=== PATIENT | female | born 1950 | race Caucasian/White ===

== ENCOUNTER 2017-08-24 06:00 | Observation (INO) | payer MEDICARE, OTHER ==
[2017-08-24] MEDS ORDERED: MORPHINE SULFATE 2 MG/ML SYRINGE IV STA (06:18)
[2017-08-24] MEDS ORDERED: ONDANSETRON 4 MG/2 ML VIAL IVP STA (06:18)
--- NOTE | 2017-08-24 06:20 | ED ---
Chest Pain HPI - General Chief Complaint: Chest Pain Stated Complaint: Chest Pain, Nausea Time Seen by Provider: 08/24/17 06:18 Source: patient Mode of arrival: ambulatory Limitations: no limitations - History of Present Illness Initial Comments: Patient complains of chest pain. Patient states the pain is in the substernal area, without radiation. Patient also has nausea. She denies any lightheadedness or dizziness. She has no vomiting. She has no pain or swelling in the legs. She has no palpitations. She was not doing anything when the pain began. The pain does not radiate anywhere. She denies any sick contacts. She has had no injuries. She denies any neck pain or stiffness. She has had no syncope or presyncope. - Related Data Home Medications Medication Instructions Recorded Confirmed HYDROcodone/APAP 10-325MG [[place] 1 tab PO Q6H PRN 11/07/15 11/08/15 10-325] Ibuprofen [Motrin] 600 mg PO Q8HR PRN 11/07/15 11/08/15 Losartan [Cozaar] 25 mg PO DAILY 11/07/15 11/08/15 Simvastatin [Zocor] 10 mg PO HS 11/07/15 11/07/15 amLODIPine [Norvasc] 10 mg PO DAILY 11/07/15 11/08/15 Multivitamins, Thera [Theragran] 1 tab PO DAILY 11/08/15 11/08/15 Previous Rx's Medication Instructions Recorded HYDROcodone/APAP 10-325MG [[place] 1 tab PO Q6H PRN #90 tab 11/11/15 10-325] Allergies Allergy/AdvReac Type Severity Reaction Status Date / Time No Known Allergies Allergy Verified 08/24/17 06:05 Review of Systems ROS Statement: Those systems with pertinent positive or pertinent negative responses have been documented in the HPI. ROS Other: All systems not noted in ROS Statement are negative. EKG Findings - EKG Comments: EKG Findings:: Twelve-lead EKG is obtained, interpreted by me showing ventricular rate 73 bpm, normal MN interval and QRS complexes, no ST elevation or depression, interpreted by me as normal sinus rhythm. 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 History of Any Multi-Drug Resistant Organisms: None Reported Past Surgical History: Appendectomy, Hysterectomy Additional Past Surgical History / Comment(s): parathyroid tumor removal, ovarian cyst removal Past Anesthesia/Blood Transfusion Reactions: No Reported Reaction Past Psychological History: No Psychological Hx Reported Smoking Status: Former smoker Past Alcohol Use History: Rare Past Drug Use History: None Reported - Past Family History Mother Family Medical History: No Reported History (Mother is alive she is 92-year-old has no major medical problems) Father Family Medical History: Myocardial Infarction ([place]) (Father at age of 72 from [place]) Brother(s) Family Medical History: No Reported History (Patient has 3 brothers no major medical problems) Sister(s) Family Medical History: No Reported History (Patient has one sister no major medical problems) Son(s) Family Medical History: No Reported History (Patient has 2 sons no major medical problems) Daughter(s) Family Medical History: No Reported History (Patient has one daughter no major medical problems) General Exam Limitations: no limitations General appearance: alert, in no apparent distress Head exam: Present: atraumatic, normocephalic, normal inspection Eye exam: Present: normal appearance, PERRL, EOMI. Absent: scleral icterus, conjunctival injection, periorbital swelling ENT exam: Present: normal exam, mucous membranes moist Neck exam: Present: normal inspection. Absent: tenderness, meningismus, lymphadenopathy Respiratory exam: Present: normal lung sounds bilaterally. Absent: respiratory distress, wheezes, rales, rhonchi, stridor Cardiovascular Exam: Present: regular rate, normal rhythm, normal heart sounds. Absent: systolic murmur, diastolic murmur, rubs, gallop, clicks GI/Abdominal exam: Present: soft, normal bowel sounds. Absent: distended, tenderness, guarding, rebound, rigid Extremities exam: Present: normal inspection, full ROM, normal capillary refill. Absent: tenderness, pedal edema, joint swelling, calf tenderness Back exam: Present: normal inspection Neurological exam: Present: alert, oriented X3, CN II-XII intact Psychiatric exam: Present: normal affect, normal mood Skin exam: Present: warm, dry, intact, normal color. Absent: rash Course Vital Signs 11/03/17 11/03/17 06:03 06:46 Temperature 97.9 F Pulse Rate 81 75 Respiratory 18 18 Rate Blood Pressure 136/98 O2 Sat by Pulse 99 98 Oximetry Chest Pain MDM - MDM Patient presents to the emergency department with chest pain. EKG is normal in appearance. Patient will be admitted to the hospital. I will place a consultation to cardiology. Disposition Clinical Impression: Chest pain Disposition: ADMITTED IP TO THIS HOSP Condition: Fair Time of Disposition: 07:00
[2017-08-24] MEDS ORDERED: MORPHINE SULFATE 10 MG/ML SYRINGE IV PRN (06:27)
[2017-08-24] MEDS ORDERED: ONDANSETRON 4 MG/2 ML VIAL IVP PRN (06:27)
[2017-08-24] MEDS ORDERED: NALOXONE 0.4 MG/ML 1 ML VIAL IV PRN (06:27)
[2017-08-24 06:30] LABS: Basophils # (A) 0.1 k/uL (0-0.2); Basophils % (A) 1 %; CH 28.7; CHCM 33.2; Eosinophils # (A) 0.3 k/uL (0-0.7); Eosinophils % (A) 3 %; HCT 44.2 % (34.0-46.0); HDW 2.79; HGB 14.6 gm/dL (11.4-16.0); Luc # (Auto) 0.19; Luc % (Auto) 2; Lymphocytes # (A) 2.7 k/uL (1.0-4.8); Lymphocytes % (A) 25 %; MCH 28.8 pg (25.0-35.0); MCHC 33.1 g/dL (31.0-37.0); Mean Platelet Volume 9.2; Monocytes # (A) 0.5 k/uL (0-1.0); Monocytes % (A) 4 %; Neutrophils % (A) 65 %; RBC 5.08 m/uL (3.80-5.40); RDW 13.2 % (11.5-15.5); WBC 10.7 k/uL (3.8-10.6); WBC (Perox) 10.22
[2017-08-24 06:40] LABS: ALT 25 U/L (9-52); AST 23 U/L (14-36); Alkaline Phosphatase 82 U/L (38-126); Anion Gap 11 mmol/L; Blood Urea Nitrogen 18 mg/dL (7-17); Calcium 10.1 mg/dL (8.4-10.2); Carbon Dioxide 24 mmol/L (22-30); Chloride 107 mmol/L (98-107); Glucose 135 mg/dL (74-99); Magnesium 1.7 mg/dL (1.6-2.3); Non-African American GFR(MDRD) >60 (>60 ml/min/1.73 sqM); Potassium 3.9 mmol/L (3.5-5.1); Sodium 142 mmol/L (137-145); Total Bilirubin 0.4 mg/dL (0.2-1.3); Total Protein 7.6 g/dL (6.3-8.2)
[2017-08-24 06:42] LABS: Partial Thromboplastin Time 22.2 sec (22.0-30.0); Prothrombin Time 9.9 sec (9.0-12.0)
--- NOTE | 2017-08-24 06:48 | XR ---
EXAMINATION TYPE: XR chest 2V DATE OF EXAM: 08/24/2017 HISTORY: Chest Pain. REFERENCE: Previous study dated 11/09/2015. FINDINGS: There is some scarring at the left lung base. Lungs otherwise clear. Pleural space are reggie r. The heart is not enlarged.. IMPRESSION: MINIMAL SCARRING, LEFT LUNG BASE.
[2017-08-24 09:01] LABS: Cholesterol 261 mg/dL (<200); HDL Cholesterol 62 mg/dL (40-60)
--- NOTE | 2017-08-24 09:40 | US ---
EXAMINATION TYPE: US gallbladder DATE OF EXAM: 08/24/2017 COMPARISON: NONE CLINICAL HISTORY: RUQ pain. EXAM MEASUREMENTS: Liver Length: 12.5 cm Gallbladder Wall: 0.4 cm CBD: 0.5 cm Right Kidney: 10.0 x 4.6 x 4.3 cm Large body habitus, excessive overlying bowel gas, limited and technically difficult study Pancreas: Obscured by bowel gas Liver: limited visualization Gallbladder: cholelithiasis, wall thickening Evidence for sonographic Diego's sign: no, but patient having RUQ pain CBD: wnl Right Kidney: No hydronephrosis or masses seen The pancreas is obscured. The liver is normal in size without biliary dilatation. There are gallstones within the gallbladder. The gallbladder wall is thickened measuring 4 mm. There was no sonographic Diego's sign. The distal common hepatic duct measures 5 mm. The right kidney is unremarkable. IMPRESSION: 1. CHOLELITHIASIS. 2. GALLBLADDER WALL THICKENING.
[2017-08-24] MEDS: FAMOTIDINE 20 MG TAB PO SCH ×2 (09:49→20:49)
[2017-08-24] MEDS: amLODIPine 10 MG TAB PO SCH (09:49)
[2017-08-24] MEDS: LOSARTAN 25 MG TAB PO SCH (09:49)
--- NOTE | 2017-08-24 11:32 | ECHOF ---
Referral Reason:chest pain MEASUREMENTS -------- HEIGHT: 167.6 cm WEIGHT: 90.7 kg BP: 166/79 RVIDd: 4.2 cm (< 3.3) IVSd: 1.0 cm (0.6 - 1.1) LVIDd: 5.3 cm (3.9 - 5.3) LVPWd: 0.9 cm (0.6 - 1.1) IVSs: 1.7 cm LVIDs: 2.0 cm LVPWs: 2.0 cm Ao Diam: 3.0 cm (2.0 - 3.7) AV Cusp: 1.9 cm (1.5 - 2.6) LA Diam: 3.8 cm (2.7 - 3.8) MV EXCURSION: 11.800 mm (> 18.000) MV EF SLOPE: 73 mm/s (70 - 150) EPSS: 0.5 cm MV E Mitesh: 0.59 m/s MV DecT: 177 ms MV A Mitesh: 0.80 m/s MV E/A Ratio: 0.73 RAP: 5.00 mmHg RVSP: 32.43 mmHg FINDINGS -------- Sinus rhythm. This was a technically good study. The left ventricular size is normal. There is mild concentric left ventricular hypertrophy. Overa ll left ventricular systolic function is normal with, an EF between 55 - 60 %. The right ventricle is moderately enlarged. The left atrium is normal in size. The right atrium is normal in size. There is mild aortic valve sclerosis. The mitral valve is normal. There is trace mitral regurgitation. Trace tricuspid regurgitation present. The right ventricular systolic pressure, as measured by Dopp ler, is 32.43mmHg. There is no pulmonic regurgitation present. The aortic root size is normal. There is no pericardial effusion. CONCLUSIONS -------- 1. Sinus rhythm. 2. This was a technically good study. 3. There is mild concentric left ventricular hypertrophy. 4. Overall left ventricular systolic function is normal with, an EF between 55 - 60 %. 5. The right ventricle is moderately enlarged. 6. The left atrium is normal in size. 7. There is mild aortic valve sclerosis. 8. There is trace mitral regurgitation. 9. Trace tricuspid regurgitation present. 10. The right ventricular systolic pressure, as measured by Doppler, is 32.43mmHg. 11. There is no pulmonic regurgitation present. 12. The aortic root size is normal. 13. There is no pericardial effusion. FLAT BREAKDOWN PROCESSOR: Corin Medel RDCS
--- NOTE | 2017-08-24 14:32 | P.CRDCN ---
History of Present Illness Consult date: 08/24/17 Requesting physician: Barrington Adam Reason for Consult (text): chest pain Chief complaint: chest and RUQ pain History of present illness: This is a pleasant 66-year-old female patient with history of hypertension, hyperlipidemia, and GERD. She presented to the emergency department after waking around 2 AM with complaints of sharp midsternal/ epigastric discomfort that radiated posteriorly just below her shoulder blades as well as to her right upper quadrant. She initially felt that this was related to her gastric reflux however began to experience some nausea with vomiting. EKG upon presentation showed sinus rhythm without any acute ST-T wave abnormalities. Chest x-ray showed minimal scarring at the left lung base. Laboratory values show BUN of 15, creatinine 0.69, troponin less than 0.012 and a BNP of 37. Upon examination this morning, patient is resting comfortably in bed. She denies further complaints as described above. She does however have some mild tenderness to palpation in the right upper quadrant of her abdomen. No further nausea or vomiting. 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 History of Any Multi-Drug Resistant Organisms: None Reported Past Surgical History: Appendectomy, Hysterectomy Additional Past Surgical History / Comment(s): parathyroid tumor removal, ovarian cyst removal Past Anesthesia/Blood Transfusion Reactions: No Reported Reaction Past Psychological History: No Psychological Hx Reported Smoking Status: Former smoker Past Alcohol Use History: Rare Past Drug Use History: None Reported - Past Family History Mother Family Medical History: No Reported History Father Family Medical History: Myocardial Infarction ([place]) Brother(s) Family Medical History: No Reported History Sister(s) Family Medical History: No Reported History Son(s) Family Medical History: No Reported History Daughter(s) Family Medical History: No Reported History Medications and Allergies Home Medications Medication Instructions Recorded Confirmed Type Losartan [Cozaar] 25 mg PO DAILY 11/07/15 08/24/17 History amLODIPine [Norvasc] 10 mg PO DAILY 11/07/15 08/24/17 History Multivitamins, Thera [Theragran] 1 tab PO DAILY 11/08/15 08/24/17 History Allergies Allergy/AdvReac Type Severity Reaction Status Date / Time No Known Allergies Allergy Verified 08/24/17 06:05 Physical Exam Vitals: Vital Signs Temp Pulse Pulse Resp BP BP Pulse Ox 08/24/17 07:22 96.2 F L 79 18 166/79 94 L 08/24/17 07:11 98 F 75 16 100 08/24/17 06:46 75 18 98 08/24/17 06:03 97.9 F 81 18 136/98 99 Intake and Output 08/23/17 08/24/17 08/24/17 22:59 06:59 14:59 Other: Weight 90.718 kg PHYSICAL EXAMINATION: HEENT: Head is atraumatic, normocephalic. Pupils equal, round. Neck is supple. There is no elevated jugular venous pressure. HEART EXAMINATION: Heart sounds regular, S1 and S2 normal. No murmur or gallop heard. CHEST EXAMINATION: Lungs are clear to auscultation and precussion. No chest wall tenderness is noted on palpation or with deep breathing. ABDOMEN: Soft, tenderness to RUQ. Bowel sounds are heard. No organomegaly noted. EXTREMITIES: 2+ peripheral pulses with no evidence of peripheral edema and no calf tenderness noted. NEUROLOGIC patient is awake, alert and oriented x3. . Results 08/24/17 06:15 08/24/17 06:15 Cardiac Enzymes 08/24/17 08/24/17 Range/Units 06:15 06:15 AST 23 (14-36) U/L Troponin I <0.012 (0.000-0.034) ng/mL Coagulation 08/24/17 Range/Units 06:15 PT 9.9 (9.0-12.0) sec APTT 22.2 (22.0-30.0) sec CBC 08/24/17 Range/Units 06:15 WBC 10.7 H (3.8-10.6) k/uL RBC 5.08 (3.80-5.40) m/uL Hgb 14.6 (11.4-16.0) gm/dL Hct 44.2 (34.0-46.0) % Plt Count 304 (150-450) k/uL Comprehensive Metabolic Panel 08/24/17 Range/Units 06:15 Sodium 142 (137-145) mmol/L Potassium 3.9 (3.5-5.1) mmol/L Chloride 107 (98-107) mmol/L Carbon Dioxide 24 (22-30) mmol/L BUN 18 H (7-17) mg/dL Creatinine 0.69 (0.52-1.04) mg/dL Glucose 135 H (74-99) mg/dL Calcium 10.1 (8.4-10.2) mg/dL AST 23 (14-36) U/L ALT 25 (9-52) U/L Alkaline Phosphatase 82 (38-126) U/L Total Protein 7.6 (6.3-8.2) g/dL Albumin 4.4 (3.5-5.0) g/dL Current Medications Generic Name Dose Route Start Last Admin Trade Name Freq PRN Reason Stop Dose Admin Amlodipine Besylate 10 mg 08/24/17 09:00 Norvasc PO DAILY [facility] Atorvastatin Calcium 10 mg 08/24/17 21:00 Lipitor PO HS [facility] Famotidine 20 mg 08/24/17 09:00 Pepcid PO BID [facility] Losartan Potassium 25 mg 08/24/17 09:00 Cozaar PO DAILY [facility] Morphine Sulfate 4 mg 08/24/17 06:27 Morphine Sulfate (Inj) IV Q4HR PRN Severe Pain Naloxone HCl 0.2 mg 08/24/17 06:27 Narcan IV Q2M PRN Opioid Reversal Ondansetron HCl 4 mg 08/24/17 06:27 Zofran IVP Q8HR PRN Nausea And Vomiting Intake and Output 08/23/17 08/24/17 08/24/17 22:59 06:59 14:59 Other: Weight 90.718 kg 08/24/17 06:15 08/24/17 06:15 Assessment and Plan Assessment: #1 atypical chest pain, suggestive of GI etiology #2 hypertension #3 hyperlipidemia Plan: From cardiology's perspective, will obtain a 2-D echo with Doppler to assess LV function and rule out LV wall motion abnormalities. Will also obtain ultrasound of gallbladder to rule out gallbladder disease. DENTAL NURSE note has been reviewed, I agree with a documented findings and plan of care. Patient was seen and examined.
--- NOTE | 2017-08-24 15:23 | P.HPIM ---
History of Present Illness This is a pleasant 66-year-old female patient with history of hypertension, hyperlipidemia, and GERD. She presented to the emergency department after waking around 2 AM with complaints of sharp midsternal/ epigastric discomfort that radiated posteriorly just below her shoulder blades as well as to her right upper quadrant. She initially felt that this was related to her gastric reflux however began to experience some nausea with vomiting. EKG upon presentation showed sinus rhythm without any acute ST-T wave abnormalities. patient's pain symptoms are mostly related to food patient did be leave that patient may have acid reflux because of which she took medications for that with some improvement in her symptoms. Cardiac evaluated the patient. Obtain a ultrasound of the abdomen which showed cholelithiasis possibly of cholecystitis patient does have tenderness in the right upper quadrant, surgery will be consulted patient will be started on Unasyn, patient continues to have symptoms.mostly has cholelithiasis but cholecystitis cannot be ruled out patient does have some leukocytosis denied any fever. Review of Systems REVIEW OF SYSTEMS: CONSTITUTIONAL: No fever, no malaise, no fatigue. HEENT: No recent visual problems or hearing problems. Denied any sore throat. CARDIOVASCULAR: No orthopnea, PND, no palpitations, no syncope. PULMONARY: No shortness of breath, no cough, no hemoptysis. GASTROINTESTINAL: No diarrhea, no vomiting, NEUROLOGICAL: No headaches, no weakness, no numbness. HEMATOLOGICAL: Denies any bleeding or petechiae. GENITOURINARY: Denies any burning micturition, frequency, or urgency. MUSCULOSKELETAL/RHEUMATOLOGICAL: Denies any joint pain, swelling, or any muscle pain. ENDOCRINE: Denies any polyuria or polydipsia. The rest of the 14-point review of systems is negative. 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 History of Any Multi-Drug Resistant Organisms: None Reported Past Surgical History: Appendectomy, Hysterectomy Additional Past Surgical History / Comment(s): parathyroid tumor removal, ovarian cyst removal Past Anesthesia/Blood Transfusion Reactions: No Reported Reaction Past Psychological History: No Psychological Hx Reported Smoking Status: Former smoker Past Alcohol Use History: Rare Past Drug Use History: None Reported - Past Family History Mother Family Medical History: No Reported History Father Family Medical History: Myocardial Infarction ([place]) Brother(s) Family Medical History: No Reported History Sister(s) Family Medical History: No Reported History Son(s) Family Medical History: No Reported History Daughter(s) Family Medical History: No Reported History Medications and Allergies Home Medications Medication Instructions Recorded Confirmed Type Losartan [Cozaar] 25 mg PO DAILY 11/07/15 08/24/17 History amLODIPine [Norvasc] 10 mg PO DAILY 11/07/15 08/24/17 History Multivitamins, Thera [Theragran] 1 tab PO DAILY 11/08/15 08/24/17 History Allergies Allergy/AdvReac Type Severity Reaction Status Date / Time No Known Allergies Allergy Verified 08/24/17 06:05 Physical Exam Vitals: Vital Signs Temp Pulse Pulse Resp BP BP Pulse Ox 08/24/17 12:00 96.8 F L 67 16 151/76 94 L 08/24/17 07:22 96.2 F L 79 18 166/79 94 L 08/24/17 07:11 98 F 75 16 100 08/24/17 06:46 75 18 98 08/24/17 06:03 97.9 F 81 18 136/98 99 Intake and Output 08/24/17 08/24/17 08/24/17 06:59 14:59 22:59 Intake Total 200 Balance 200 Intake: Oral 200 Other: Weight 90.718 kg PHYSICAL EXAMINATION: GENERAL: The patient is alert and oriented x3, not in any acute distress. Well developed, well nourished. HEENT: Pupils are round and equally reacting to light. EOMI. No scleral icterus. No conjunctival pallor. Normocephalic, atraumatic. No pharyngeal erythema. No thyromegaly. CARDIOVASCULAR: S1 and S2 present. No murmurs, rubs, or gallops. PULMONARY: Chest is clear to auscultation, no wheezing or crackles. ABDOMEN: Soft, right upper quadrant tenderness and Diego's sign positive nondistended, normoactive bowel sounds. No palpable organomegaly. MUSCULOSKELETAL: No joint swelling or deformity. EXTREMITIES: No cyanosis, clubbing, or pedal edema. NEUROLOGICAL: Gross neurological examination did not reveal any focal deficits. SKIN: No rashes. Results CBC & Chem 7: 08/24/17 06:15 08/24/17 06:15 Labs: Abnormal Lab Results - Last 24 Hours (Table) 08/24/17 08/24/17 08/24/17 Range/Units 06:15 06:15 06:15 WBC 10.7 H (3.8-10.6) k/uL BUN 18 H (7-17) mg/dL Glucose 135 H (74-99) mg/dL Cholesterol 261 H (<200) mg/dL LDL Cholesterol, Calc 171 H (0-99) mg/dL HDL Cholesterol 62 H (40-60) mg/dL Assessment and Plan Plan: epigastric and right upper quadrant abdominal pain: Secondary to cholelithiasis or cholecystitis antibiotics as mentioned above surgical consultation. Next and #2 hypertension next and #3 hyperlipidemia next and #4 osteoarthritis next and #5 gastric esophageal reflux disease #6 rule out acute coronary syndromes next Plan continue with the antibiotics IV fluids surgical consultation patient will be transferred to [facility] to [facility]
--- NOTE | 2017-08-24 15:37 | P.GSCN ---
History of Present Illness Consult date: 08/24/17 Reason for Consult: Cholelithiasis right upper quadrant pain Requesting physician: Morgan Payne History of present illness: Thank you very much for asking us to see this patient. She is well-known to me. She is a 66-year-old white female who was awakened at about 2 AM early hours of this morning with severe retrosternal chest pain epigastric pain radiating to the back to just below her shoulder blade. It was associated with nausea and a few episodes of vomiting. After she was hospitalized the pain seemed to localize towards the right upper quadrant. Cardiac workup was negative for acute myocardial infarct or coronary artery disease of significance. She does have a history of GERD and the she was told she had a gallstone several years ago but since she was asymptomatic nothing was donefor it. No change in her bowels no constipation or diarrhea. The ultrasound showed cholelithiasis with gallstones and thickened gallbladder wall consistent with probably acute cholecystitis. Past history positive for hypertension hyperlipidemia. 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 He is now as listed including amlodipine and multivitamins. Also has a history of osteoarthritis back pain. Also renal cyst no cardiac or respiratory problem. ALLERGIES none known. Systems review otherwise negative other than above. No respiratory problems no cardiac problem. No change in her bowels no blood in his urine or stool. No vaginal discharge or bleeding. Did have colonoscopy and EGD within the last 3 years that were unremarkable. Social history and family history well-documented. On examination the patient is well-built well-nourished a little overweight in no acute distress. She states the pain is very minimal now. Duration a good vitals are good. She is a somewhat overweight the at the 91 kg 5 feet 6 inches tall. She is anicteric. Hydration and color good. Neck is supple has a neck scar. No masses or lymphadenopathy. Heart regular rhythm lungs are clear abdomen is soft with mild tenderness in the right upper quadrant with the minimal guarding. No rebound. No mass or organomegaly noted. Has well-healed lower abdominal midline scar. Extremities normal ART INSTRUCTOR intact. WBC is mildly elevated to 10,300. Hemoglobin is normal. LFTs are normal. Amylase and lipase are normal. Urinalysis is unremarkable. Ultrasound and chest x-ray are unremarkable except for cholelithiasis and a thickened gallbladder wall. Impression acute cholecystitis cholelithiasis. History of hypertension osteoarthritis. Good. Recommendation agree with current management with IV fluids restriction of diet the antibiotics. Improving quite a bit. With the recommend the that she may be discharged in the next day or so oral antibiotics. Liquid to soft low-fat diet. We'll schedule her for an elective laparoscopic cholecystectomy possible open this being explained to her including potential complication particular bleeding infection surrounding injury pain possibly of open surgery etc. she understood and agree to proceed. 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 History of Any Multi-Drug Resistant Organisms: None Reported Past Surgical History: Appendectomy, Hysterectomy Additional Past Surgical History / Comment(s): parathyroid tumor removal, ovarian cyst removal Past Anesthesia/Blood Transfusion Reactions: No Reported Reaction Past Psychological History: No Psychological Hx Reported Smoking Status: Former smoker Past Alcohol Use History: Rare Past Drug Use History: None Reported - Past Family History Mother Family Medical History: No Reported History Father Family Medical History: Myocardial Infarction ([place]) Brother(s) Family Medical History: No Reported History Sister(s) Family Medical History: No Reported History Son(s) Family Medical History: No Reported History Daughter(s) Family Medical History: No Reported History Medications and Allergies Home Medications Medication Instructions Recorded Confirmed Type Losartan [Cozaar] 25 mg PO DAILY 11/07/15 08/24/17 History amLODIPine [Norvasc] 10 mg PO DAILY 11/07/15 08/24/17 History Multivitamins, Thera [Theragran] 1 tab PO DAILY 11/08/15 08/24/17 History Allergies Allergy/AdvReac Type Severity Reaction Status Date / Time No Known Allergies Allergy Verified 08/24/17 06:05 Surgical - Exam Vital Signs Temp Pulse Resp BP Pulse Ox 97.9 F 81 18 136/98 99 08/24/17 06:03 08/24/17 06:03 08/24/17 06:03 08/24/17 06:03 08/24/17 06:03 Results - Labs 08/24/17 06:15 08/24/17 06:15 Abnormal Lab Results - Last 24 Hours (Table) 1108/24/17 08/24/17 Range/Units 06:15 06:15 06:15 WBC 10.7 H (3.8-10.6) k/uL BUN 18 H (7-17) mg/dL Glucose 135 H (74-99) mg/dL Cholesterol 261 H (<200) mg/dL LDL Cholesterol, Calc 171 H (0-99) mg/dL HDL Cholesterol 62 H (40-60) mg/dL Diabetes panel 08/24/17 08/24/17 Range/Units 06:15 06:15 Sodium 142 (137-145) mmol/L Potassium 3.9 (3.5-5.1) mmol/L Chloride 107 (98-107) mmol/L Carbon Dioxide 24 (22-30) mmol/L BUN 18 H (7-17) mg/dL Creatinine 0.69 (0.52-1.04) mg/dL Glucose 135 H (74-99) mg/dL Calcium 10.1 (8.4-10.2) mg/dL AST 23 (14-36) U/L ALT 25 (9-52) U/L Alkaline Phosphatase 82 (38-126) U/L Total Protein 7.6 (6.3-8.2) g/dL Albumin 4.4 (3.5-5.0) g/dL Triglycerides 139 (<150) mg/dL HDL Cholesterol 62 H (40-60) mg/dL Calcium panel 08/24/17 Range/Units 06:15 Calcium 10.1 (8.4-10.2) mg/dL Albumin 4.4 (3.5-5.0) g/dL Pituitary panel 08/24/17 Range/Units 06:15 Sodium 142 (137-145) mmol/L Potassium 3.9 (3.5-5.1) mmol/L Chloride 107 (98-107) mmol/L Carbon Dioxide 24 (22-30) mmol/L BUN 18 H (7-17) mg/dL Creatinine 0.69 (0.52-1.04) mg/dL Glucose 135 H (74-99) mg/dL Calcium 10.1 (8.4-10.2) mg/dL Adrenal panel 08/24/17 Range/Units 06:15 Sodium 142 (137-145) mmol/L Potassium 3.9 (3.5-5.1) mmol/L Chloride 107 (98-107) mmol/L Carbon Dioxide 24 (22-30) mmol/L BUN 18 H (7-17) mg/dL Creatinine 0.69 (0.52-1.04) mg/dL Glucose 135 H (74-99) mg/dL Calcium 10.1 (8.4-10.2) mg/dL Total Bilirubin 0.4 (0.2-1.3) mg/dL AST 23 (14-36) U/L ALT 25 (9-52) U/L Alkaline Phosphatase 82 (38-126) U/L Total Protein 7.6 (6.3-8.2) g/dL Albumin 4.4 (3.5-5.0) g/dL
[2017-08-24] MEDS: PANTOPRAZOLE 40 MG/10 ML VIAL IVP SCH (15:53)
[2017-08-24] MEDS: AMPICILLIN-SULBACTAM 3 GM in SODIUM CHLORIDE 0.9% 100 ML IVPB SCH ×2 (15:54→23:21)
[2017-08-24] MEDS: SODIUM CHLORIDE 0.9% 1,000 ML IV SCH (15:54)
[2017-08-24] MEDS ORDERED: ATORVASTATIN 10 MG TAB PO SCH (21:00)
[2017-08-25] MEDS: SODIUM CHLORIDE 0.9% 1,000 ML IV SCH ×2 (02:55→08:16)
[2017-08-25 06:13] LABS: CHCM 32.2; HCT 38.6 % (34.0-46.0); HDW 2.73; HGB 12.5 gm/dL (11.4-16.0); MCH 28.3 pg (25.0-35.0); MCHC 32.4 g/dL (31.0-37.0); MCV 87.5 fL (80.0-100.0); Mean Platelet Volume 9.7; RBC 4.42 m/uL (3.80-5.40); RDW 14.5 % (11.5-15.5); WBC 7.3 k/uL (3.8-10.6)
[2017-08-25] MEDS: AMPICILLIN-SULBACTAM 3 GM in SODIUM CHLORIDE 0.9% 100 ML IVPB SCH ×2 (06:15→11:45)
[2017-08-25 06:30] LABS: ALT 30 U/L (9-52); AST 21 U/L (14-36); Alkaline Phosphatase 60 U/L (38-126); Anion Gap 7 mmol/L; Blood Urea Nitrogen 15 mg/dL (7-17); Calcium 8.7 mg/dL (8.4-10.2); Carbon Dioxide 26 mmol/L (22-30); Chloride 109 mmol/L (98-107); Glucose 84 mg/dL (74-99); Non-African American GFR(MDRD) >60 (>60 ml/min/1.73 sqM); Potassium 4.2 mmol/L (3.5-5.1); Sodium 142 mmol/L (137-145); Total Bilirubin 0.6 mg/dL (0.2-1.3)
[2017-08-25] MEDS: LOSARTAN 25 MG TAB PO SCH (08:15)
[2017-08-25] MEDS: amLODIPine 10 MG TAB PO SCH (08:15)
[2017-08-25] MEDS: FAMOTIDINE 20 MG TAB PO SCH (08:15)
[2017-08-25] MEDS: PANTOPRAZOLE 40 MG/10 ML VIAL IVP SCH (08:16)
[2017-08-25 08:19] VITALS: RESP 18
--- NOTE | 2017-08-25 09:49 | P.PN ---
Subjective Progress Note Date: 08/25/17 Principal diagnosis: Cholecystitis Patient doing better today. Her pain is improved. She is anxious to go home. Her liver function tests are normal. White blood cell count is normal. Objective - Vital Signs Vital signs: Vital Signs Temp 97.2 F L 08/25/17 08:00 Pulse 88 08/25/17 08:00 Resp 18 08/25/17 08:00 BP 143/80 08/25/17 08:00 Pulse Ox 90 L 08/25/17 08:00 Intake & Output 08/24/17 08/25/17 08/25/17 18:59 06:59 18:59 Intake Total 200 400 240 Balance 200 400 240 Weight 93.3 kg Intake: Intake, IV Titration 400 Amount Sodium Chloride 0.9% 1, 400 000 ml @ 100 mls/hr IV . Q10H MISAEL Rx#:[id number] Oral 200 240 Other: # Voids 1 1 # Bowel Movements 0 - Exam Abdomen: Soft, nondistended, minimal right upper quadrant tenderness - Labs CBC & Chem 7: 08/25/17 05:25 08/25/17 05:25 Labs: Abnormal Lab Results - Last 24 Hours (Table) 08/25/17 Range/Units 05:25 Chloride 109 H (98-107) mmol/L Total Protein 6.0 L (6.3-8.2) g/dL Albumin 3.4 L (3.5-5.0) g/dL Assessment and Plan (1) Cholecystitis Narrative/Plan: Proceed with planned discharge today and outpatient cholecystectomy by Dr. Payne. Current Visit: Yes Status: Acute Code(s): K81.9 - CHOLECYSTITIS, UNSPECIFIED SNOMED Code(s): 63999486
[2017-08-25 11:35] LABS: Glucose,Whole Blood 83 mg/dL (75-99)
[2017-08-25 12:01] VITALS: BP 132/69; PULSE 72; TEMP 96.4
--- NOTE | 2017-08-25 12:08 | P.PN ---
Subjective Progress Note Date: 08/25/17 Principal diagnosis: chest and RUQ pain This is a pleasant 66-year-old female patient with history of hypertension, hyperlipidemia, and GERD. She presented to the emergency department after waking around 2 AM with complaints of sharp midsternal/ epigastric discomfort that radiated posteriorly just below her shoulder blades as well as to her right upper quadrant. She initially felt that this was related to her gastric reflux however began to experience some nausea with vomiting. EKG upon presentation showed sinus rhythm without any acute ST-T wave abnormalities. Chest x-ray showed minimal scarring at the left lung base. Laboratory values show BUN of 15, creatinine 0.69, troponin less than 0.012 and a BNP of 37. Echocardiogram showed normal LV systolic function with an EF of 55-60% without any significant valvular abnormalities. Upon examination this morning, patient is resting comfortably in bed. She denies further complaints as described above. Her right upper quadrant tenderness has improved. No further nausea or vomiting. Objective - Vital Signs Vital signs: Vital Signs Temp 96.4 F L 08/25/17 12:00 Pulse 72 08/25/17 12:00 Resp 18 08/25/17 12:00 BP 132/69 08/25/17 12:00 Pulse Ox 92 L 08/25/17 12:00 Intake & Output 08/24/17 08/25/17 08/25/17 18:59 06:59 18:59 Intake Total 200 400 240 Balance 200 400 240 Weight 93.3 kg Intake: Intake, IV Titration 400 Amount Sodium Chloride 0.9% 1, 400 000 ml @ 100 mls/hr IV . Q10H MISAEL Rx#:[id number] Oral 200 240 Other: # Voids 1 1 # Bowel Movements 0 - Exam PHYSICAL EXAMINATION: HEENT: Head is atraumatic, normocephalic. Pupils equal, round. Neck is supple. There is no elevated jugular venous pressure. HEART EXAMINATION: Heart sounds regular, S1 and S2 normal. No murmur or gallop heard. CHEST EXAMINATION: Lungs are clear to auscultation and precussion. No chest wall tenderness is noted on palpation or with deep breathing. ABDOMEN: Soft, tenderness to RUQ. Bowel sounds are heard. No organomegaly noted. EXTREMITIES: 2+ peripheral pulses with no evidence of peripheral edema and no calf tenderness noted. NEUROLOGIC patient is awake, alert and oriented x3. - Labs CBC & Chem 7: 08/25/17 05:25 08/25/17 05:25 Labs: Abnormal Lab Results - Last 24 Hours (Table) 08/25/17 Range/Units 05:25 Chloride 109 H (98-107) mmol/L Total Protein 6.0 L (6.3-8.2) g/dL Albumin 3.4 L (3.5-5.0) g/dL Assessment and Plan Assessment: #1 atypical chest pain, suggestive of GI etiology #2 hypertension #3 hyperlipidemia Plan: From cardiology's perspective, Ms. Olson is stable for discharge home. She will be having lap murtaza and an outpatient. She will follow-up in the office with Dr. Arroyo in about 4-6 weeks. SOFTWARE ENGINEER ADVISOR note has been reviewed, I agree with a documented findings and plan of care. Patient was seen and examined.
[2017-08-25 12:31] LABS: Appearance,Urine Clear (Clear); Bacteria,Urine Rare /hpf; Bilirubin,Urine Negative (Negative); Glucose,Urine (UA) Negative (Negative); Ketones,Urine Negative (Negative); Leukocyte Esterase,Urine Small (Negative); Nitrite,Urine Negative (Negative); PH, Urine 5.5 (5.0-8.0); Particle Count 760; Protein,Urine Negative (Negative); RBC,Urine 1 /hpf (0-5); Specific Gravity,Urine 1.016 (1.001-1.035); Squamous Epithelial Cell,Urine <1 /hpf (0-4); UA Billing (MACRO vs. MICRO) MICRO; Urobilinogen,Urine <2.0 mg/dL (<2.0); WBC,Urine 4 /hpf (0-5)
--- NOTE | 2017-08-25 14:49 | P.DS ---
Providers Date of admission: 08/24/17 06:31 Attending physician: Barrington Adam Consults: 08/24/17 06:29 Consult Physician Routine Consulting Provider: Maria Fernanda Charles Consult Reason/Comments: chest pain Do you want consulting provider notified?: Yes 08/24/17 13:31 Consult Physician Routine Consulting Provider: Morgan Payne Consult Reason/Comments: Possible cholecystitis Do you want consulting provider notified?: Yes Primary care physician: Jocelyn Zamora Hospital Course: 66-year-old admitted for chest pain rule out, patient is found to have gastroesophageal disease and cholelithiasis with possibility of mild cholecystitis patient was evaluate surgery and they recommended outpatient cholecystectomy patient will be discharged on Augmentin. PHYSICAL EXAMINATION: GENERAL: The patient is alert and oriented x3, not in any acute distress. Well developed, well nourished. HEENT: Pupils are round and equally reacting to light. EOMI. No scleral icterus. No conjunctival pallor. Normocephalic, atraumatic. No pharyngeal erythema. No thyromegaly. CARDIOVASCULAR: S1 and S2 present. No murmurs, rubs, or gallops. PULMONARY: Chest is clear to auscultation, no wheezing or crackles. ABDOMEN: Soft, nontender, nondistended, normoactive bowel sounds. No palpable organomegaly. MUSCULOSKELETAL: No joint swelling or deformity. EXTREMITIES: No cyanosis, clubbing, or pedal edema. NEUROLOGICAL: Gross neurological examination did not reveal any focal deficits. SKIN: No rashes. epigastric and right upper quadrant abdominal pain: Secondary to cholelithiasis or cholecystitis antibiotics as mentioned above #2 hypertension #3 hyperlipidemia #4 osteoarthritis #5 gastric esophageal reflux disease #6 rule out acute coronary syndromes Patient Condition at Discharge: Fair Plan - Discharge Summary New Discharge Prescriptions: New Amoxic-Pot Clav 875-125Mg [Augmentin 875-125] 1 tab PO Q12HR #14 tablet No Action Losartan [Cozaar] 25 mg PO DAILY amLODIPine [Norvasc] 10 mg PO DAILY Multivitamins, Thera [Theragran] 1 tab PO DAILY Discharge Medication List Losartan [Cozaar] 25 mg PO DAILY 11/07/15 [History] amLODIPine [Norvasc] 10 mg PO DAILY 11/07/15 [History] Multivitamins, Thera [Theragran] 1 tab PO DAILY 11/08/15 [History] Amoxic-Pot Clav 875-125Mg [Augmentin 875-125] 1 tab PO Q12HR #14 tablet [Rx] Follow up Appointment(s)/Referral(s): Rl Arroyo MD [STAFF PHYSICIAN] - 4 Weeks (Please call during normal business hours to make an appointment.) Jocelyn Zamora MD [Primary Care Provider] - 3 Days (Please call to make an appointment during normal business hours.) Patient Instructions/Handouts: Chest Pain (DC), Cholecystitis (GEN), Low Fat Diet (DC) Activity/Diet/Wound Care/Special Instructions: Low fat diet. Incentive spirometry Q 1 hour while awake. Discharge Disposition: HOME SELF-CARE
== END 2017-08-25 13:18 | disposition home or self-care (01) ==
LOC: EC 06:00 → 6SEL 06:31
PROVIDERS: ADMIT Hospitalist; ATTEND Hospitalist
DX: K80.00 Calculus of gallbladder with acute cholecystitis without obstruction (principal); I11.9 Hypertensive heart disease without heart failure; E78.5 Hyperlipidemia, unspecified; K21.9 Gastro-esophageal reflux disease without esophagitis; M19.90 Unspecified osteoarthritis, unspecified site; E66.3 Overweight; Z87.891 Personal history of nicotine dependence; Z79.899 Other long term (current) drug therapy; Z82.49 Family history of ischemic heart disease and other diseases of the circulatory system; M54.30 Sciatica, unspecified side; Z68.33 Body mass index [BMI] 33.0-33.9, adult
CPT/HCPCS: 99285; 96375 ×4; 96376; 96365; 96366 ×2; 36415; 93005; 93306; 83880; 80061; 80053 ×2; 83690; 83735; 84484; 85025; 85027; 85610; 85730; 81001; 71020; 76705; G0378 ×2; J2405; J2270; J0295 ×2; C9113 ×2